=== PATIENT | male | born 1980 | race Caucasian/White ===

== ENCOUNTER 2020-09-28 08:36 | Emergency (ER) | payer SELFPAY ==
[~2020-09-28] VITALS: Ht 175 cm; Wt 84.0 kg
[2020-09-28] MEDS ORDERED: ONDANSETRON 4 MG/2 ML (SDV) Z0FRAN IVP ONE (09:00)
[2020-09-28] MEDS ORDERED: NS IV 1000 ML 1,000 ML IV SCH (09:00)
[2020-09-28] MEDS ORDERED: fentaNYL INJ 100 MCG/2 ML AMP IVP ONE ×2 (09:00→10:15)
[2020-09-28] MEDS ORDERED: PANTOPRAZOLE 40 MG (PROTONIX) VIAL IV ONE (09:00)
[2020-09-28 09:06] LABS: BASOPHILS % (AUTO) 1 % (0-10); EOSINOPHILS # (AUTO) 0.2 10^3/uL (0.0-0.3); EOSINOPHILS % (AUTO) 3 % (0-10); HEMATOCRIT 44 % (40-54); LYMPHOCYTES # (AUTO) 1.5 10^3/uL (1.0-4.0); LYMPHOCYTES % (AUTO) 29 % (12-44); MEAN CORPUSCULAR HEMOGLOBIN 34 pg (25-34); MEAN CORPUSCULAR HGB CONC 34 g/dL (32-36); MEAN CORPUSCULAR VOLUME 101 fL (80-99); MEAN PLATELET VOLUME 9.9 fL (9.0-12.2); MONOCYTES # (AUTO) 0.5 10^3/uL (0.0-1.0); MONOCYTES % (AUTO) 11 % (0-12); NEUTROPHILS # (AUTO) 2.9 10^3/uL (1.8-7.8); NEUTROPHILS % (AUTO) 57 % (42-75); PLATELET COUNT 217 10^3/uL (130-400); WHITE BLOOD COUNT 5.1 10^3/uL (4.3-11.0)
--- NOTE | 2020-09-28 09:07 | ED Abdominal Pain ---
General Stated Complaint: ABD PAIN Source of Information: Patient Exam Limitations: No Limitations History of Present Illness Date Seen by Provider: Sep 28, 2020 Time Seen by Provider: 08:50 Initial Comments Patient is a 40-year-old male who presents to the emergency department today with a chief complaint of abdominal pain. Patient states he has had abdominal pain ongoing for the last couple of days. This morning became nauseated and had some vomiting. Patient does endorse a little bit of blood-streaked vomitus. He states over the course of the last month he has had a couple of stools that have had a little bright red blood in them. Patient denies any fevers or chills. He is currently nauseated. Movement makes the pain worse nothing has made it any better. He has not taken any medications for the pain. Patient has not had any prior abdominal surgeries. Patient does smoke cigars and marijuana, he does not smoke cigarettes. He is not been using any ibuprofen or Tylenol to try and alleviate his pain. Patient states that he tried to eat some pizza for breakfast this morning but was not able to do this secondary to nausea and pain. No other recent fevers, chills, cough congestion. No problems with urination. No testicular pain or scrotal swelling. Patient is concerned that he might have an ulcer. All other review of systems reviewed and negative except as stated above. Timing/Duration: 2-3 Days Severity/Quality: Severe, Aching, Burning, Cramping Location: Epigastric, Generalized Abdomen Radiation: No Radiation Activities at Onset: None Associated Symptoms: Denies Symptoms Allergies and Home Medications Allergies Coded Allergies: No Known Drug Allergies (Unverified , 09/28/20) Home Medications Ondansetron 4 Mg Tab.rapdis, 4 MG PO Q8H PRN for nausea Prescribed by: ROBBIN LAKHANI on 09/28/20 1003 Sucralfate 1 Gm Tablet, 1 GM PO ACHS Prescribed by: ROBBIN LAKHANI on 09/28/20 1003 Patient Home Medication List Home Medication List Reviewed: Yes Review of Systems Review of Systems Constitutional: see HPI EENTM: No Symptoms Reported Respiratory: No Symptoms Reported Cardiovascular: No Symptoms Reported Gastrointestinal: Abdominal Pain, Blood Streaked Stools, Nausea, Poor Appetite, Vomiting Genitourinary: No Symptoms Reported Musculoskeletal: no symptoms reported Skin: no symptoms reported Psychiatric/Neurological: No Symptoms Reported All Other Systems Reviewed Negative Unless Noted: Yes Physical Exam Vital Signs Vital Signs - First Documented 09/28/20 08:43 Temp 36.1 Pulse 103 Resp 18 B/P (MAP) 139/78 (98) Pulse Ox 97 Capillary Refill : Height/Weight/BMI Height: '" Weight: lbs. oz. kg; BMI Method: General Appearance: WD/WN, moderate distress HEENT: PERRL/EOMI Respiratory: lungs clear, normal breath sounds, no respiratory distress, no accessory muscle use Cardiovascular: regular rate, rhythm Gastrointestinal: soft, abnormal bowel sounds (Hyperactive bowel sounds noted), distended, guarding, rebound, tenderness Extremities: normal inspection, no pedal edema Back: normal inspection Neurologic/Psychiatric: alert, normal mood/affect, oriented x 3 Skin: normal color, warm/dry Progress/Results/Core Measures Results/Orders Lab Results Laboratory Tests Test 09/28/20 08:55 Range/Units White Blood Count 5.1 4.3-11.0 10^3/uL Red Blood Count 4.38 4.30-5.52 10^6/uL Hemoglobin 15.0 13.3-17.7 g/dL Hematocrit 44 40-54 % Mean Corpuscular Volume 101 H 80-99 fL Mean Corpuscular Hemoglobin 34 25-34 pg Mean Corpuscular Hemoglobin Concent 34 32-36 g/dL Red Cell Distribution Width 12.3 10.0-14.5 % Platelet Count 217 130-400 10^3/uL Mean Platelet Volume 9.9 9.0-12.2 fL Immature Granulocyte % (Auto) 0 % Neutrophils (%) (Auto) 57 42-75 % Lymphocytes (%) (Auto) 29 12-44 % Monocytes (%) (Auto) 11 0-12 % Eosinophils (%) (Auto) 3 0-10 % Basophils (%) (Auto) 1 0-10 % Neutrophils # (Auto) 2.9 1.8-7.8 10^3/uL Lymphocytes # (Auto) 1.5 1.0-4.0 10^3/uL Monocytes # (Auto) 0.5 0.0-1.0 10^3/uL Eosinophils # (Auto) 0.2 0.0-0.3 10^3/uL Basophils # (Auto) 0.0 0.0-0.1 10^3/uL Immature Granulocyte # (Auto) 0.0 0.0-0.1 10^3/uL Sodium Level 140 135-145 MMOL/L Potassium Level 4.0 3.6-5.0 MMOL/L Chloride Level 105 98-107 MMOL/L Carbon Dioxide Level 24 21-32 MMOL/L Anion Gap 11 5-14 MMOL/L Blood Urea Nitrogen 16 7-18 MG/DL Creatinine 0.94 0.60-1.30 MG/DL Estimat Glomerular Filtration Rate > 60 BUN/Creatinine Ratio 17 Glucose Level 89 70-105 MG/DL Calcium Level 9.0 8.5-10.1 MG/DL Corrected Calcium 8.7 8.5-10.1 MG/DL Total Bilirubin 1.0 0.1-1.0 MG/DL Aspartate Amino Transf (AST/SGOT) 51 H 5-34 U/L Alanine Aminotransferase (ALT/SGPT) 34 0-55 U/L Alkaline Phosphatase 113 40-136 U/L Total Protein 7.6 6.4-8.2 GM/DL Albumin 4.4 3.2-4.5 GM/DL My Orders Orders - ROBBIN LAKHANI MD Cbc With Automated Diff (09/28/20 08:52) Comprehensive Metabolic Panel (09/28/20 08:52) Ed Iv/Invasive Line Start (09/28/20 08:52) Ct Abdomen/Pelvis Wo (09/28/20 08:52) Fentanyl Inj (Sublimaze Injection) (09/28/20 09:00) Ondansetron Injection (Zofran Injectio (09/28/20 09:00) Ns Iv 1000 Ml (Sodium Chloride 0.9%) (09/28/20 09:00) Pantoprazole Injection (Protonix Injecti (09/28/20 09:00) Sucralfate Tablet (Carafate Tablet) (09/28/20 09:45) Dicyclomine Injection (Bentyl Injection) (09/28/20 10:04) Fentanyl Inj (Sublimaze Injection) (09/28/20 10:15) Medications Given in ED Current Medications Medications Dose Ordered Sig/Jonathan Route Start Time Stop Time Status Last Admin Dose Admin Fentanyl Citrate 50 mcg ONCE ONCE IVP 09/28/20 09:00 09/28/20 09:01 DC 09/28/20 09:02 50 MCG Fentanyl Citrate 50 mcg ONCE ONCE IVP 09/28/20 10:15 09/28/20 10:16 DC 09/28/20 10:14 50 MCG Ondansetron HCl 8 mg ONCE ONCE IVP 09/28/20 09:00 09/28/20 09:01 DC 09/28/20 09:01 8 MG Pantoprazole 80 mg ONCE ONCE IV 09/28/20 09:00 09/28/20 09:01 DC 09/28/20 09:01 80 MG Sucralfate 1 gm ONCE ONCE PO 09/28/20 09:45 09/28/20 09:46 DC 09/28/20 09:44 1 GM Vital Signs/I&O 09/28/20 08:43 Temp 36.1 Pulse 103 Resp 18 B/P (MAP) 139/78 (98) Pulse Ox 97 Progress Progress Note : Time: 09:43 Progress Note labs reviewed and unremarkable. CT scan abdomen and pelvis shows nothing acute. VSS. Patient treated with zofran, fentanyl, protonix and carafate. had improvement in symptoms. patient will be placed on a PPI. also sent home with nausea medications patient instructed to follow up with his PCP. He verbalizes understanding. All questions are sought and answered. Still having pain at about a "7". will redose fentanyl and give him some bentyl as well. 1040 rechecked and feeling better. will discharge to home. off today and back to work tomorrow. Diagnostic Imaging Diagonstic Imaging: CT Plain Films/CT/US/NM/MRI: abdomen Comments [facility], [place] NAME: TRINYCARLOS [facility] REC#: [id number] PT STATUS: REG ER : 1980 PHYSICIAN: ROBBIN LAKHANI MD ADMIT DATE: 09/28/20/ER Signed Date of Exam:09/28/20 CT ABDOMEN/PELVIS WO EXAMINATION: CT abdomen and pelvis without contrast. TECHNIQUE: Multiple contiguous axial images were obtained through the abdomen and pelvis without the use of intravenous contrast. All CT scans use one or more of the following dose optimizing techniques: automated exposure control, MA and/or KvP adjustment based on patient size and exam type or iterative reconstruction. HISTORY: Severe epigastric pain COMPARISON: None available. FINDINGS: Lung bases: The lung bases are clear. Solid organs: The liver is normal. The gallbladder is normal. There is no biliary ductal dilation. Pancreas is normal. There are multiple calcified granulomas within the spleen. Adrenal glands are normal. The kidneys are normal without visualized calculus or hydronephrosis. Bowel: The stomach and small bowel are normal without obstruction. The colon and appendix are normal. Peritoneum: There is no intraperitoneal free fluid or free air. No suspicious lymphadenopathy. Vasculature: Normal without aneurysm. Musculoskeletal: No suspicious osseous lesion or compression fracture. There is a small fat-containing umbilical hernia. Pelvis: The prostate gland is normal. The urinary bladder is normal. IMPRESSION: 1. No acute abnormality in the abdomen or pelvis. Dictated by: Dictated on workstation # [id number] Dict: 09/28/2035 Trans: 09/28/2043 [facility] [id number] Interpreted by: EMERSON MCGRATH DO Electronically signed by: EMERSON MCGRATH DO 09/28/2043 Departure Impression Primary Impression: Abdominal pain Qualified Codes: R10.13 - Epigastric pain Disposition: HOME, SELF-CARE Condition: Stable Departure-Patient Inst. Decision time for Depature: 09:55 Referrals: [facility] [place] PHYSICIAN (PCP) Primary Care Physician Patient Instructions: Severe Abdominal Pain, Adult (DC) Add. Discharge Instructions: Drink plenty of fluids to stay well hydrated. Over the counter Prilosec, daily for the next 6 weeks. Nausea medications as needed. Cut back on smoking cigars and THC. Avoid spicy/ heavy fatty foods for the next several days while your stomach tries to heal. Its a good idea to stop smoking completely. Return to the Emergency Department for any return of or worsening pain, vomiting blood, fever or other emergent concerning symptoms. Scripts Sucralfate (Carafate) 1 Gm Tablet 1 GM PO ACHS, #60 TAB Prov: ROBBIN LAKHANI MD 09/28/20 Ondansetron (Ondansetron Odt) 4 Mg Tab.rapdis 4 MG PO Q8H PRN for nausea, #20 TAB Prov: ROBBIN LAKHANI MD 09/28/20 Work/School Note: Work Release Form Date Seen in the Emergency Department: Sep 28, 2020 Return to Work: Sep 29, 2020 ROBBIN LAKHANI MD Sep 28, 2020 09:07
[2020-09-28 09:29] LABS: ALANINE AMINOTRANSFERASE 34 U/L (0-55); ALBUMIN 4.4 GM/DL (3.2-4.5); ALKALINE PHOSPHATASE 113 U/L (40-136); BUN/CREATININE RATIO 17; CARBON DIOXIDE 24 MMOL/L (21-32); CHLORIDE 105 MMOL/L (98-107); CREATININE SERUM 0.94 MG/DL (0.60-1.30); GFR ESTIMATED > 60; GLUCOSE 89 MG/DL (70-105); SODIUM 140 MMOL/L (135-145); TOTAL PROTEIN 7.6 GM/DL (6.4-8.2)
--- NOTE | 2020-09-28 09:40 | Diagnostic Imaging Report ---
EXAMINATION: CT abdomen and pelvis without contrast. TECHNIQUE: Multiple contiguous axial images were obtained through the abdomen and pelvis without the use of intravenous contrast. All CT scans use one or more of the following dose optimizing techniques: automated exposure control, MA and/or KvP adjustment based on patient size and exam type or iterative reconstruction. HISTORY: Severe epigastric pain COMPARISON: None available. FINDINGS: Lung bases: The lung bases are clear. Solid organs: The liver is normal. The gallbladder is normal. There is no biliary ductal dilation. Pancreas is normal. There are multiple calcified granulomas within the spleen. Adrenal glands are normal. The kidneys are normal without visualized calculus or hydronephrosis. Bowel: The stomach and small bowel are normal without obstruction. The colon and appendix are normal. Peritoneum: There is no intraperitoneal free fluid or free air. No suspicious lymphadenopathy. Vasculature: Normal without aneurysm. Musculoskeletal: No suspicious osseous lesion or compression fracture. There is a small fat-containing umbilical hernia. Pelvis: The prostate gland is normal. The urinary bladder is normal. IMPRESSION: 1. No acute abnormality in the abdomen or pelvis. Dictated by: Dictated on workstation # [id number]
[2020-09-28] MEDS ORDERED: SUCRALFATE 1 GM (CARAFATE) TAB PO ONE (09:45)
[2020-09-28] MEDS ORDERED: ONDA4TAB11 PO (10:03)
[2020-09-28] MEDS ORDERED: SUCR1TAB36 PO (10:03)
[2020-09-28] MEDS ORDERED: DICYCLOMINE 10 MG/ML (BENTYL) 2 ML AMP IM STA (10:04)
[2020-09-28 10:46] VITALS: BP 128/76
== END 2020-09-28 10:46 | disposition home or self-care (01) ==
LOC: ER 08:38
DX: R10.84 Generalized abdominal pain (principal)
CPT/HCPCS: 36415; 74176; 80053; 85025